=== PATIENT | female | born 1975 | race Caucasian/White ===

== ENCOUNTER 2023-02-05 14:34 | Outpatient (CLI) | payer OTHER ==
[~2023-02-05 14:34] MED LIST: Magnevist 469MG/ML 20 ML VIAL ONE
== END 2023-02-05 14:35 | disposition home or self-care (01) ==
LOC: BICMRI 14:34
PROVIDERS: ATTEND Family Medicine
DX: G44.52 New daily persistent headache (NDPH) (principal)
CPT/HCPCS: 70553; A9579